=== PATIENT | male | born 1975 | race Caucasian/White ===

== ENCOUNTER 2020-05-13 22:46 | Emergency (ER) | payer MEDICARE ==
--- NOTE | 2020-05-13 22:57 | ERPHSYRPT ---
- History of Present Illness Time Seen by Provider: 05/13/20 22:57 Source: patient, police Exam Limitations: clinical condition Physician History: This is a 44-year-old white male who was brought into the emergency department for medical clearance for incarceration. The patient was breaking into a home and not acting appropriately. Police officers wanted him evaluated. He is not suicidal or homicidal. Patient does have a history of schizophrenia and is on BuSpar and risperidone. He has a prescription in his pocket but not the medications. He has not yet filled his prescriptions. Patient denies any injuries to his body. He does not have chest pain. He denies shortness of breath. Denies abdominal pain. Police officers would like a urine triage. Timing/Duration: today Severity: mild Associated Symptoms: denies symptoms Allergies/Adverse Reactions: No Known Drug Allergies Allergy (Unverified 05/13/20 22:48) Travel Risk - International Travel Have you traveled outside of the country in past 3 weeks: No - Coronavirus Screening Are you exhibiting any of the following symptoms?: No Close contact with a COVID-19 positive Pt in past 14-21 Days: No - Review of Systems Constitutional: No Symptoms Eyes: No Symptoms Ears, Nose, & Throat: No Symptoms Respiratory: No Symptoms Cardiac: No Symptoms Abdominal/Gastrointestinal: No Symptoms Genitourinary Symptoms: No Symptoms Musculoskeletal: No Symptoms Skin: No Symptoms Neurological: No Symptoms Psychological: No Symptoms Endocrine: No Symptoms Hematologic/Lymphatic: No Symptoms Immunological/Allergic: No Symptoms All Other Systems: Reviewed and Negative - Past Medical History Pertinent Past Medical History: Yes - Past Surgical History Past Surgical History: Yes - Physical Exam General Appearance: no apparent distress, alert, anxiety Eye Exam: PERRL/EOMI, eyes nml inspection Ears, Nose, Throat Exam: normal ENT inspection, moist mucous membranes Neck Exam: normal inspection, non-tender, supple, full range of motion Respiratory Exam: normal breath sounds, lungs clear, airway intact, No chest tenderness, No respiratory distress Cardiovascular Exam: regular rate/rhythm, normal heart sounds, normal peripheral pulses Gastrointestinal/Abdomen Exam: soft, normal bowel sounds, No tenderness Rectal Exam: not done Back Exam: normal inspection, normal range of motion, No CVA tenderness, No vertebral tenderness Extremity Exam: normal inspection, normal range of motion, pelvis stable Neurologic Exam: alert, oriented x 3, cooperative, pet walker II-XII nml as tested, nml cerebellar function, nml station & gait, sensation nml, intoxicated appearance Skin Exam: normal color, warm, dry Lymphatic Exam: No adenopathy SpO2 Interpretation: normal O2 Delivery: Room Air - Course Nursing assessment & vital signs reviewed: Yes Ordered Tests: Active Orders 24 hr Category Date Time Status Urine Triage Profile Stat Lab 05/13/20 22:57 Ordered - Progress Progress: unchanged Counseled pt/family regarding: lab results, diagnosis - Departure Departure Disposition: [facility] Clinical Impression: Medical clearance for incarceration Condition: Stable Critical Care Time: No
[2020-05-13 23:35] LABS: Amphetamine,Urine NEGATIVE (NEGATIVE); Barbiturate,Urine NEGATIVE (NEGATIVE); Benzodiazepine,Urine NEGATIVE (NEGATIVE); Cocaine,Urine NEGATIVE (NEGATIVE); Methadone,Urine NEGATIVE (NEGATIVE); Opiate,Urine NEGATIVE (NEGATIVE); PCP,Urine NEGATIVE (NEGATIVE); THC,Urine NEGATIVE (NEGATIVE)
[2020-05-13 23:50] VITALS: BP 138/78; PULSE 100; O2SAT 98
== END 2020-05-13 23:45 | disposition home or self-care (01) ==
LOC: ED 22:46
DX: Z02.89 Encounter for other administrative examinations (principal); F20.9 Schizophrenia, unspecified; F19.959 Other psychoactive substance use, unspecified with psychoactive substance-induced psychotic disorder, unspecified
CPT/HCPCS: 80307; 99284